=== PATIENT | male | born 1985 | race African-American/Black ===

== ENCOUNTER 2018-07-17 07:13 | Emergency (ER) | payer OTHER ==
[2018-07-17 07:24] VITALS: BP 151/104
--- NOTE | 2018-07-17 07:51 | UC ---
Shoulder Pain HPI - HPI Summary HPI Summary: ABOUT 2 DAYS AGO PATIENT DEVELOPED RIGHT SHOULDER PAIN. STATES HE WAS CARRYING HEAVY GROCERIES INTO THE HOUSE THE DAY BEFORE BUT OTHERWISE DENIES ANY UNUSUAL PHYSICAL ACTIVITY, INJURY OR TRAUMA. HAS NO PREVIOUS HISTORY OF SHOULDER INJURY. WENT TO [facility] YESTERDAY, WAS DIAGNOSED WITH ROTATOR CUFF IMPINGEMENT AND GIVEN IBUPROFEN WHICH HE STATES IS NOT HELPING AT ALL. PATIENT REPORTS THE PAIN IS KEEPING HIM UP AT NIGHT. - History of Current Complaint Chief Complaint: UCUpperExtremity Stated Complaint: SHOULDER PAIN Time Seen by Provider: 07/17/18 07:20 Hx Obtained From: Patient Onset/Duration: Sudden Onset, Lasting Days, Still Present Timing: Constant Severity Initially: Moderate Severity Currently: Moderate Location Of Pain: Is Discrete @ - right shoulder Pain Intensity: 10 - SITTING COMFORTABLY IN ROOM Pain Scale Used: 0-10 Numeric Character: Sharp Aggravating Factor(s): Movement Alleviating Factor(s): Nothing Associated Signs And Symptoms: Negative: Swelling, Redness, Bruising, Weakness, Numbness/Tingling Related History: Dominant Hand Right - Allergies/Home Medications Allergies/Adverse Reactions: Allergies Allergy/AdvReac Type Severity Reaction Status Date / Time Penicillins Allergy Rash Verified 07/17/18 07:24 Home Medications: Home Medications Cholecalciferol TAB* [Vitamin D TAB*] 1,000 unit PO DAILY 07/17/18 [History Confirmed 07/17/18] PMH/Surg Hx/FS Hx/Imm Hx Cardiovascular History: Hypertension - Surgical History Surgical History: None - Family History Known Family History: Positive: Non-Contributory - Social History Alcohol Use: None Substance Use Type: None Smoking Status (MU): Never Smoked Tobacco Review of Systems All Other Systems Reviewed And Are Negative: Yes Constitutional: Positive: Negative Skin: Positive: Negative Respiratory: Positive: Negative Cardiovascular: Positive: Negative Gastrointestinal: Positive: Negative Musculoskeletal: Positive: Arthralgia, Myalgia. Negative: Decreased ROM, Edema Physical Exam Triage Information Reviewed: Yes Appearance: Well-Appearing, No Pain Distress, Well-Nourished Vital Signs: Initial Vital Signs Temp 97.6 F 07/17/18 07:19 Pulse 76 07/17/18 07:19 Resp 14 07/17/18 07:19 BP 151/104 07/17/18 07:19 Pulse Ox 100 07/17/18 07:19 Vital Signs Reviewed: Yes Eyes: Positive: Conjunctiva Clear ENT: Positive: Hearing grossly normal Neck: Positive: Supple Respiratory: Positive: No respiratory distress, No accessory muscle use Cardiovascular: Positive: Pulses Normal Abdomen Description: Positive: Soft Musculoskeletal: Positive: ROM Intact, No Edema Neurological: Positive: Alert Psychological: Positive: Age Appropriate Behavior Skin: Negative: Rashes Diagnostics - Radiology RIGHT SHOULDER XRAY Radiology Interpretation Completed By: Radiologist Summary of Radiographic Findings: UNREMARKABLE Shoulder Course/Dx - Differential Dx/Diagnosis Provider Diagnosis: Sprain of right shoulder Discharge - Sign-Out/Discharge Documenting (check all that apply): Patient Departure All imaging exams completed and their final reports reviewed: Yes - Discharge Plan Condition: Stable Disposition: HOME Prescriptions: Cyclobenzaprine TAB* [Flexeril TAB*] 10 mg PO BID PRN #30 tab PRN Reason: Pain Naproxen [Naproxen 500 mg tab] 500 mg PO BID PRN #30 tablet PRN Reason: Pain Patient Education Materials: Shoulder Sprain (ED) Referrals: Maurice Chand MD [Medical Doctor] - 2 Weeks Ilda Jaramillo MD [Primary Care Provider] - If Needed Additional Instructions: XRAY TODAY NEGATIVE FOR ANY ABNORMALITY. YOUR SYMPTOMS SHOULD IMPROVE SIGNIFICANTLY OVER THE NEXT 1-2 WEEKS. IF YOU DO NOT IMPROVE EXPECTED FOLLOW- UP WITH YOUR PCP OR ORTHO. YOU MAY BENEFIT FROM MORE ADVANCED IMAGING AT THAT TIME. STOP IBUPROFEN AND USE NAPROXEN NEEDED FOR DISCOMFORT. REST, ICE AND SLING FOR SYMPTOM RELIEF. USE MUSCLE RELAXER BEFORE BED. BE SURE TO GO THROUGH SLOW RANGE OF MOTION AND STRETCHING EXERCISES DAILY YOU ARE ABLE TO PREVENT STIFFENING UP AND MAKING THE DISCOMFORT WORSE. - Billing Disposition and Condition Condition: STABLE Disposition: Home
== END 2018-07-17 08:44 | disposition home or self-care (01) ==
LOC: UCEAST 07:13
DX: S43.401A Unspecified sprain of right shoulder joint, initial encounter (principal); X50.0XXA Overexertion from strenuous movement or load, initial encounter; Y93.89 Activity, other specified; Y92.009 Unspecified place in unspecified non-institutional (private) residence as the place of occurrence of the external cause; Z88.0 Allergy status to penicillin; I10 Essential (primary) hypertension
CPT/HCPCS: 99213; G0463